=== PATIENT | female | born 1985 | race Caucasian/White ===

== ENCOUNTER 2020-08-05 05:45 | Day surgery (SDC) | payer OTHER ==
[2020-08-01 14:55] VITALS: BMI 21.8
--- NOTE | 2020-08-03 07:47 | HP ---
HISTORY: Madai Bradley is a 35-year-old female, 132 pounds and 64 inches, 22 BMI, has had 2 past pregnancies, most recent about a year ago. During both these pregnancies, she developed pain in left groin. Her doctors told her that she has a hernia. After the delivery, this seemed to go away, but then it re-presents with each . She plans to have another child. Patient on exam is examined in standing Valsalva and the hernia is not definitively found, although she was told that during her she had a hernia. Plan at this time is laparoscopic/robotic evaluation and repair of a hernia with mesh. She understands risks and benefits, consents. We will plan this as an outpatient. I initially saw her in December 2019, but is now at a time in her life when she wants to proceed. MEDICATIONS: Vitamins. PAST MEDICAL HISTORY: None. PAST SURGICAL HISTORY: [place] teeth. FAMILY HISTORY: Hearing loss, arthritis. Grandfather had heart disease. Tobacco, none. Alcohol, none. SOCIAL HISTORY: The patient is a full-time homemaker, . PHYSICAL EXAMINATION: VITAL SIGNS: Weight 132 pounds, 64 inches, 22 BMI. Blood pressure 116/68, heart rate 80, temperature 98.8 degrees. HEAD, EYES, EARS, NOSE, AND THROAT: Unremarkable. LUNGS: Clear to auscultation. CARDIAC: Regular rate and rhythm without murmur or gallop. ABDOMEN: Soft, nontender. EXTREMITIES: Unremarkable. Standing Valsalva reveals some fullness in left groin during Valsalva. ASSESSMENT AND PLAN: Left inguinal hernia apparent during , not currently. PLAN: Laparoscopic robotic repair using mesh. She understands risks and benefits, consents. Job ID: [id number]
[2020-08-05] MEDS ORDERED: Acetaminophen 500 MG TAB ONE (06:39)
[2020-08-05] MEDS ORDERED: Ketorolac Tromethamine 30 MG/ML VIAL ONE (06:39)
[2020-08-05] MEDS ORDERED: Scopolamine 1.5 mg/72 hour Patch ONE (06:40)
[2020-08-05] MEDS ORDERED: Levofloxacin 500 mg/D5W 100 ml Premix Bag ONE (06:40)
[2020-08-05] MEDS ORDERED: Bupivacaine 0.25% HCL 30 ML VIAL ONE (06:44)
[2020-08-05] MEDS ORDERED: Lidocaine 1% w/Epinephrine 1:100K 20 ML VIAL ONE (06:44)
[2020-08-05] MEDS ORDERED: Fentanyl 100 MCG/2 ML VIAL ONE (07:01)
[2020-08-05] MEDS ORDERED: Midazolam HCl 2 mg/2 ml Vial ONE ×2 (07:01→07:05)
[2020-08-05] MEDS ORDERED: HYDROcodone/Acetaminophen 5/325 mg Tablet ONE (09:20)
[2020-08-05] MEDS ORDERED: Glycopyrrolate 0.2 MG/ML 5 ML SYRINGE ONE (10:01)
[2020-08-05] MEDS ORDERED: Rocuronium Bromide 10 MG/ML (10ML VIAL) ONE (10:01)
[2020-08-05] MEDS ORDERED: Lidocaine 1% PF 5 ML VIAL ONE (10:01)
[2020-08-05] MEDS ORDERED: PROPOFOL 200 MG/20 ML VIAL ONE (10:01)
[2020-08-05] MEDS ORDERED: Ondansetron PF 4 MG/2 ML Vial ONE (10:01)
[2020-08-05] MEDS ORDERED: Dexamethasone 20 MG/5 ML VIAL ONE (10:01)
--- NOTE | 2020-08-05 13:13 | OP ---
DATE OF PROCEDURE: 08/05/2020 PREOPERATIVE DIAGNOSIS: Left inguinal hernia. POSTOPERATIVE DIAGNOSIS: Left inguinal hernia. PROCEDURE PERFORMED: Laparoscopic/robot repair of left inguinal hernia, medium left mesh. ANESTHESIA: General. DESCRIPTION OF PROCEDURE: The patient was taken to the operating room where under general anesthesia, a Bustillos catheter was placed at the beginning of the procedure and removed at the end. Abdomen was prepared with ChloraPrep and draped in routine fashion. Local anesthetic mixture of 0.5% Marcaine 30 mL, mixed with 1% Xylocaine with epinephrine 20 mL. Mixture infiltrated into the skin and subcutaneous tissue about each port site and then for an ilioinguinal nerve block left. Left paramedian supraumbilical incision made. Pneumoperitoneum to 15 mmHg obtained with a Veress needle, replacing with an 11-mm balloon port and a video laparoscope inserted. Lateral left and lateral right incisions made above the umbilical plane, lateral abdomen and 8 mm ports placed. The patient was placed in slight Trendelenburg and robot docked and positioned and robot inguinal hernia repair undertaken. Left groin had a small indirect left inguinal hernia. Peritoneal flap dissected free medially to the anterior superior iliac spine left lateral and peritoneal flap dissected free, preserving the inferior epigastric vessels. The round ligament dissecting peritoneum off the round ligament, dissecting retroperitoneum, identified Cesar ligament. Dissection laterally obtained. The mesh obtained, properly positioned, secured to Cesar ligament with 2-0 Vicryl to the anterior abdominal wall and the left inferior epigastric vessels with 2-0 Vicryl. Once properly positioned and good hemostasis noted, peritoneum closed with continuous suture of #3-0 V-Loc suture. Good repair observed. The patient tolerated the procedure well. Job ID: [id number]
== END 2020-08-05 11:10 | disposition home or self-care (01) ==
LOC: SDC 05:45
PROVIDERS: ATTEND Specialist
PROC: 0YU64JZ Supplement Left Inguinal Region with Synthetic Substitute, Percutaneous Endoscopic Approach (ICD-10-PCS; principal; 2020-08-05)
DX: K40.90 Unilateral inguinal hernia, without obstruction or gangrene, not specified as recurrent (principal); Z79.899 Other long term (current) drug therapy; Z88.0 Allergy status to penicillin
CPT/HCPCS: C1781; J1100; J1885; J1956; J2250; J2405; J2704; J3010; S0020